=== PATIENT | male | born 1975 | race Caucasian/White ===

== ENCOUNTER 2017-04-18 14:07 | Outpatient (CLI) | payer BC | END 2017-04-18 14:08 | disposition home or self-care (01) | PROVIDERS: ATTEND Physician Assistant | DX: R07.9 Chest pain, unspecified (principal) | CPT/HCPCS: 93017 ==

== ENCOUNTER 2019-01-03 07:40 | Outpatient (CLI) | payer OTHER ==
--- NOTE | 2019-01-03 08:48 | MRI ---
MRI Lumbar Spine Noncontrast: HISTORY: Lumbar strain COMPARISON: None FINDINGS: Conus medullaris is normal in morphology and terminates at the L1 level. Mild, multilevel degenerative facet hypertrophy. L1-2:No significant stenosis L2-3:No significant stenosis L3-4:Minimal disc bulge, without significant stenosis. L4-5:Minimal disc bulge without significant stenosis. L5-S1:Left subarticular disc with mild narrowing of the left subarticular zone and crowding of the le ft S1 nerve root. Mild bilateral neural foraminal stenosis. Degenerative T2 signal reduction of the L5-S1 disc. IMPRESSION: Left subarticular disc protrusion, L5-S1, with crowding of left S1 nerve root, and mild bilateral kenia ral foraminal stenosis.
== END 2019-01-03 07:41 | disposition home or self-care (01) ==
LOC: SCSMRI 07:40
PROVIDERS: ATTEND Family Medicine
DX: S39.012D Strain of muscle, fascia and tendon of lower back, subsequent encounter (principal); M54.31 Sciatica, right side; M48.07 Spinal stenosis, lumbosacral region; M51.27 Other intervertebral disc displacement, lumbosacral region
CPT/HCPCS: 72148